=== PATIENT | male | born 1940 | race Caucasian/White ===

== ENCOUNTER 2018-02-11 17:40 | Emergency (ER) | payer MEDICARE, OTHER ==
[~2018-02-11] VITALS: Ht 172.7 cm; Wt 81.6 kg
[2018-02-11] MEDS ORDERED: TERAZOSIN HCL1 MG ORAL (17:51)
[2018-02-11] MEDS ORDERED: LOSARTAN POTASS50 MG ORAL (17:51)
[2018-02-11] MEDS ORDERED: LEVOTHYROXINE50 MCG ORAL (17:51)
[2018-02-11] MEDS ORDERED: LATANOPROST2.5 ML BOTH EYES (18:02)
[2018-02-11] MEDS ORDERED: TRUSOPT10 ML RIGHT EYE (18:02)
[2018-02-11] MEDS ORDERED: GABAPENTIN300 MG ORAL (18:02)
[2018-02-11] MEDS ORDERED: TRAMADOL HCL50 MG ORAL (18:05)
[2018-02-11] MEDS ORDERED: ZOFRAN ODT4 MG ORAL (18:05)
[2018-02-11] MEDS ORDERED: ATORVASTATIN CA20 MG ORAL (18:05)
[2018-02-11] MEDS ORDERED: RISPERDAL0.5 MG ORAL (18:07)
[2018-02-11] MEDS ORDERED: MIRTAZAPINE7.5 MG ORAL (18:07)
[2018-02-11] MEDS ORDERED: TRAZODONE HCL150 MG ORAL (18:07)
--- NOTE | 2018-02-11 18:25 | Emergency Room Report ---
History of Present Illness General Chief Complaint: General Complaint Source: Patient, EMS Present Illness HPI 77-year-old male, history of dementia, coming from long-term for being more agitated than normal. Patient is currently oriented to person only, which is his baseline, patient was noted to have abnormal behavior, being more easily irritable. No other history able to be obtained Allergies: Coded Allergies: ADHESIVE TAPE (Verified Allergy, Unknown, 02/11/18) ATENOLOL (Verified Allergy, Unknown, 02/11/18) CLINDAMYCIN (Verified Allergy, Unknown, 02/11/18) IODINE AND IODIDE CONTAINING PRODUC (Unverified Allergy, Unknown, 02/11/18) SULFA (SULFONAMIDE ANTIBIOTICS) (Unverified Allergy, Unknown, 02/11/18) Patient History Past Medical History: see triage record Past Surgical History: none Pertinent Family History: none Reviewed Nursing Documentation: PMH: Agreed, PSxH: Agreed Nursing Documentation-PMH Past Medical History: No History, Except For Hx Neurological Problems: Yes - Dementia Review of Systems All Other Systems: negative except mentioned in HPI Physical Exam Vital Signs Date Time Temp Pulse Resp B/P (MAP) Pulse Ox O2 Delivery O2 Flow Rate FiO2 02/11/18 17:30 98.9 74 18 148/96 98 Room Air 99.0 Sp02 EP Interpretation: reviewed, normal General Appearance: other - tired, nad, confused Head: normocephalic, atraumatic Eyes: bilateral eye normal inspection, bilateral eye PERRL, bilateral eye EOMI ENT: normal ENT inspection, normal pharynx, normal voice, moist mucus membranes Neck: normal inspection, full range of motion, supple Respiratory: normal inspection, lungs clear, normal breath sounds, no respiratory distress, no retraction, no wheezing, speaking full sentences, chest symmetrical Cardiovascular #1: normal inspection, regular rate, rhythm, normal capillary refill Cardiovascular #2: 2+ radial (R), 2+ radial (L) Gastrointestinal: normal inspection, non tender, soft, non-distended, no guarding Genitourinary: no CVA tenderness Musculoskeletal: normal inspection, back normal, normal range of motion, non- tender Neurologic: alert, other - ff all commands Psychiatric: other - confused Skin: normal inspection, normal color, no rash, warm/dry, well hydrated, normal turgor Medical Decision Making Diagnostic Impression: Primary Impression: Agitation Additional Impression: Dementia ER Course 77-year-old male with increased agitation DDX: Metabolic, dehydration, infection, progression of dementia Plan: Obtain labs, ua, EKG, CXR ER course: Patient has been monitored during ED stay, HD stable spoke with Joey, Dr Wilhelm, pt seen in [facility] yesterday for agitation, was medically cleared, seen by psych, placed on risperdal/trazadone pt had normal labs yesterday in ED and was sent back to his facility states he is DNR/DNI with advanced dementia No acute abnormalities noted on labs he has been calm/cooperative during stay VSS will dc Disposition: Patient will be xferred back to facility Please note that this Emergency Department Report was dictated using [employer] instructor technology software, occasionally this can lead to erroneous entry secondary to interpretation by the dictation equipment. EKG Diagnostic Results EP Interpretation: Yes Rate: normal Rhythm: NSR ST Segments: No acute changes ASA given to patient: No Rhythm Strip EP Interpretation: Yes Rate: 70 Rhythm: NSR, no PVCs, no ectopy Chest X-ray CXR: Ordered: Yes 1 view Indication: Altered mental status EP interpretation: Yes Interpretation: No consolidation, no effusion, no PTX, no acute cardiopulmonary disease Impression: No acute disease Electronically signed by Yonathan Clay MD Laboratory Tests Test 02/11/18 18:48 02/11/18 19:06 White Blood Count 4.6 K/UL (4.8-10.8) L Red Blood Count 3.35 M/UL (4.70-6.10) L Hemoglobin 9.7 G/DL (14.2-18.0) L Hematocrit 29.8 % (42.0-52.0) L Mean Corpuscular Volume 89 FL (80-99) Mean Corpuscular Hemoglobin 28.8 PG (27.0-31.0) Mean Corpuscular Hemoglobin Concent 32.4 G/DL (32.0-36.0) Red Cell Distribution Width 16.7 % (11.6-14.8) H Platelet Count 135 K/UL (150-450) L Mean Platelet Volume 7.0 FL (6.5-10.1) Neutrophils (%) (Auto) 75.2 % (45.0-75.0) H Lymphocytes (%) (Auto) 16.0 % (20.0-45.0) L Monocytes (%) (Auto) 5.9 % (1.0-10.0) Eosinophils (%) (Auto) 1.7 % (0.0-3.0) Basophils (%) (Auto) 1.2 % (0.0-2.0) Sodium Level 141 MMOL/L (136-145) Potassium Level 4.0 MMOL/L (3.5-5.1) Chloride Level 107 MMOL/L (98-107) Carbon Dioxide Level 26 MMOL/L (21-32) Anion Gap 8 mmol/L (5-15) Blood Urea Nitrogen 14 mg/dL (7-18) Creatinine 1.2 MG/DL (0.55-1.30) Estimate Glomerular Filtration Rate mL/min (>60) Glucose Level 112 MG/DL (74-106) H Calcium Level 8.0 MG/DL (8.5-10.1) L Total Bilirubin 0.7 MG/DL (0.2-1.0) Aspartate Amino Transferase (AST) 32 U/L (15-37) Alanine Aminotransferase (ALT) 27 U/L (12-78) Alkaline Phosphatase 681 U/L (46-116) H Total Creatine Kinase 59 U/L (26-308) Troponin I 0.000 ng/mL (0.000-0.056) Total Protein 6.7 G/DL (6.4-8.2) Albumin 3.0 G/DL (3.4-5.0) L Globulin 3.7 g/dL Albumin/Globulin Ratio 0.8 (1.0-2.7) L Urine Color Pale yellow Urine Appearance Clear Urine pH 8 (4.5-8.0) Urine Specific Rogers 1.010 (1.005-1.035) Urine Protein 2+ (NEGATIVE) H Urine Glucose (UA) Negative (NEGATIVE) Urine Ketones Negative (NEGATIVE) Urine Occult Blood 3+ (NEGATIVE) H Urine Nitrite Negative (NEGATIVE) Urine Bilirubin Negative (NEGATIVE) Urine Urobilinogen Normal MG/DL (0.0-1.0) Urine Leukocyte Esterase Negative (NEGATIVE) Urine RBC 2-4 /HPF (0 - 0) H Urine WBC 0-2 /HPF (0 - 0) Urine Squamous Epithelial Cells None /LPF (NONE/OCC) Urine Bacteria None /HPF (NONE) CT/MRI/US Diagnostic Results CT/MRI/US Diagnostic Results : Imaging Test Ordered: CT head Impression CT HEAD: No acute intra process. Involutional changes with small vessel disease. Last Vital Signs Date Time Temp Pulse Resp B/P (MAP) Pulse Ox O2 Delivery O2 Flow Rate FiO2 02/11/18 17:30 98.9 74 18 148/96 98 Room Air 99.0 Disposition: [facility] Condition: Stable Yonathan Clay M.D. Feb 11, 2018 18:25
[2018-02-11 19:07] LABS: BASOPHILS % (AUTO) 1.2 % (0.0-2.0); EOSINOPHILS % (AUTO) 1.7 % (0.0-3.0); HEMATOCRIT 29.8 % (42.0-52.0); HEMOGLOBIN 9.7 G/DL (14.2-18.0); MEAN CORPUSCULAR VOLUME 89 FL (80-99); MONOCYTES % (AUTO) 5.9 % (1.0-10.0); NEUTROPHILS % (AUTO) 75.2 % (45.0-75.0); PLATELET COUNT 135 K/UL (150-450); RED BLOOD COUNT 3.35 M/UL (4.70-6.10); RED CELL DISTRIBUTION WIDTH 16.7 % (11.6-14.8); WHITE BLOOD COUNT 4.6 K/UL (4.8-10.8)
[2018-02-11 19:16] VITALS: BP 168/76
[2018-02-11 19:19] LABS: ANION GAP 8 mmol/L (5-15); BLOOD UREA NITROGEN 14 mg/dL (7-18); CARBON DIOXIDE 26 MMOL/L (21-32); CHLORIDE 107 MMOL/L (98-107); CREATININE 1.2 MG/DL (0.55-1.30); SODIUM 141 MMOL/L (136-145)
[2018-02-11 19:25] LABS: APPEARANCE,URINE CLEAR; BILIRUBIN, URINE NEGATIVE (NEGATIVE); COLOR,URINE PALE YELLOW; GLUCOSE, URINE (UA) NEGATIVE (NEGATIVE); KETONES,URINE NEGATIVE (NEGATIVE); LEUKOCYTE ESTERASE ,URINE NEGATIVE (NEGATIVE); NITRITE,URINE NEGATIVE (NEGATIVE); PH,URINE 8 (4.5-8.0); PROTEIN,URINE 2+ (NEGATIVE); UROBILINOGEN,URINE NORMAL MG/DL (0.0-1.0)
[2018-02-11 19:25] LABS: ALANINE AMINOTRANSFERASE 27 U/L (12-78); ALBUMIN/GLOBULIN RATIO 0.8 (1.0-2.7); ALKALINE PHOSPHATASE 681 U/L (46-116); ASPARTATE AMINO TRANSFERASE 32 U/L (15-37); BILIRUBIN,TOTAL 0.7 MG/DL (0.2-1.0); CREATINE KINASE 59 U/L (26-308)
[2018-02-11] MEDS ORDERED: TRAZODONE HCL50 MG ORAL (20:31)
[2018-02-12 00:20] VITALS: BP 150/70
[2018-02-12 02:28] VITALS: BP 150/70
--- NOTE | 2018-02-12 08:33 | Diagnostic Imaging Report ---
Indication: Chest pain Technique: One view of the chest Comparison: none Findings: Inspiration is suboptimal. Lungs and pleural spaces are clear. The heart size is normal. The aorta is calcified. Upper mediastinum is unremarkable. There are degenerative changes of the left shoulder Impression: No acute process
--- NOTE | 2018-02-12 08:38 | Diagnostic Imaging Report ---
Indication: Altered mental status Technique: spiral acquisitions obtained through the brain. Angled axial and coronal 5 x 5 mm slices were reconstructed. No IV contrast utilized. Radiation dose was minimized using automated exposure control Total dose length product 1467.58 mGycm. CTDIvol(s) 70.38 mGy Comparison: none FINDINGS: No acute hemorrhage or edema. No mass effect or midline shift. There is age-related enlargement of the ventricles and extra axial CSF spaces. There is periventricular deep white matter ischemic change. Normal siddiqui-white differentiation. Visualized orbits are unremarkable. Visualized sinuses are unremarkable. Intact calvarium. IMPRESSION: Chronic and age-related changes. Negative for acute intracranial bleed or mass effect As from agrees stat rad The CT scanner at [facility] is accredited by the [employer] and the scans are performed using protocols designed to limit radiation exposure to as low as reasonably achievable to attain images of sufficient resolution adequate for diagnostic evaluation
--- NOTE | 2018-02-13 17:30 | Cardiology Report ---
APPROVED REPORT EKG Measurement Heart [id number] Normal sinus rhythm Nonspecific ST abnormality Abnormal ECG
== END 2018-02-12 01:23 | disposition short-term general hospital (02) ==
LOC: EDBD 17:40 → EMR 19:23
DX: R45.1 Restlessness and agitation (principal); F03.90 Unspecified dementia, unspecified severity, without behavioral disturbance, psychotic disturbance, mood disturbance, and anxiety; Z88.2 Allergy status to sulfonamides; Z88.8 Allergy status to other drugs, medicaments and biological substances; Z91.041 Radiographic dye allergy status
CPT/HCPCS: 36415; 70450; 71045; 80053; 81003; 82550; 84484; 85025; 86850; 86900; 86901; 87081; 93005; 99284